=== PATIENT | male | born 1975 | race Caucasian/White ===

== ENCOUNTER 2018-03-31 10:28 | Outpatient (REF) | payer BC, SELFPAY ==
[2018-03-31 22:57] LABS: Anion Gap 6.6 mmol/L (3-11); BUN 16 mg/dL (7-18); CO2 29.4 mmol/L (21.0-32.0); CREATININE 1.16 mg/dL (0.70-1.30); Chloride 104 mmol/L (98-107); Cholesterol 201 mg/dL (50-200); Glucose 84 mg/dL (70-100); HDL Cholesterol 34 mg/dL (40-60); LDL CHOLESTEROL 161 mg/dL (<100); Potassium 4.7 mmol/L (3.5-5.1); Sodium 140 mmol/L (136-145); Triglyceride 117 mg/dL (30-150)
== END 2018-03-31 10:48 ==
LOC: NCHCN 10:28
PROVIDERS: Visit Provider Nurse Practitioner Family
DX: Z00.00 Encounter for general adult medical examination without abnormal findings (principal); Z13.220 Encounter for screening for lipoid disorders; Z13.228 Encounter for screening for other metabolic disorders
CPT/HCPCS: 80048; 80061; 83721

== ENCOUNTER 2019-11-29 14:42 | Outpatient (REF) | payer BC, SELFPAY ==
[2019-11-29 20:47] LABS: Calculated LDL 137 mg/dL (<100); Cholesterol 187 mg/dL (<200); HDL Cholesterol 33 mg/dL (40-60); Triglyceride 86 mg/dL (<150)
== END 2019-11-29 15:02 ==
LOC: NCHCN 14:42
PROVIDERS: PCP Nurse Practitioner Family; Visit Provider Nurse Practitioner Family
DX: Z00.00 Encounter for general adult medical examination without abnormal findings (principal); Z13.220 Encounter for screening for lipoid disorders
CPT/HCPCS: 80061